=== PATIENT | female | born 2000 | race Caucasian/White ===

== ENCOUNTER → 2020-02-09 | Outpatient (REF) | payer OTHER | LOC: M LAB REF 16:09 | PROVIDERS: ATTEND Physician Assistant Medical | DX: Z11.59 Encounter for screening for other viral diseases (principal) ==

== ENCOUNTER 2022-09-22 10:08 | Day surgery (SDC) | payer OTHER ==
[~2022-09-22] VITALS: Ht 167.6 cm; Wt 90.4 kg
[~2022-09-22 10:08] MED LIST: AMPICILLIN SOD/SULBACTAM SOD 3 GM in D5W MINI-BAG PLUS 100 ML IV ONE; HYDR-3363 PO; LEXA1TAB2 PO; LIDOCAINE 2% 100MG/5ML SDV (FOR ANES.) As Ordered ONE; LIDOCAINE 2% W/ EPINEPHRINE 1.7 ML DENTAL INJ As Ordered ONE; ONDA4TAB6 PO; ONDANSETRON 4MG 2ML VIAL As Ordered ONE; ROCURONIUM BROMIDE 50MG/5ML VIAL As Ordered ONE; SUGAMMADEX SODIUM 500 MG/5 ML VIAL (BRIDION) As Ordered ONE; propofoL 200 MG/20 ML VIAL As Ordered ONE
[2022-09-22] MEDS ORDERED: OXYMETAZOLINE 0.05% NASAL SPRAY (AFRIN) As Ordered ONE (10:35)
[2022-09-22] MEDS ORDERED: LR 1,000 ML IV SCH ×2 (11:00→12:50)
[2022-09-22] MEDS ORDERED: fentaNYL 100 MCG/2 ML INJECTION As Ordered ONE (11:34)
[2022-09-22] MEDS ORDERED: MIDAZOLAM INJ 2MG/2ML VIAL As Ordered ONE (11:34)
[2022-09-22] MEDS ORDERED: CHLORHEXIDINE GLUCONATE 0.12 % 15ML UDC (PERIDEX ORAL RINSE) As Ordered ONE (12:16)
[2022-09-22] MEDS ORDERED: ACETAMINOPHEN 1000MG 100ML IV BAG As Ordered ONE ×2 (12:23→13:35)
[2022-09-22] MEDS ORDERED: GLYCOPYRROLATE INJ 0.2 MG/ML 2 ML VIAL As Ordered ONE (12:30)
[2022-09-22] MEDS ORDERED: fentaNYL 100 MCG/2 ML INJECTION IV PRN (12:50)
[2022-09-22] MEDS ORDERED: ONDANSETRON 4MG 2ML VIAL IV PRN (12:50)
[2022-09-22] MEDS ORDERED: oxyCODONE 5MG TAB PO PRN (12:50)
[2022-09-22] MEDS ORDERED: HYDROMORPHONE HCL 0.5 MG/ 0.5 ML SYRINGE IV PRN (12:50)
[2022-09-22 15:25] VITALS: BP 122/61; TEMP 99.7; O2SAT 97
== END 2022-09-22 15:38 | disposition home or self-care (01) ==
LOC: M SDC 10:08
PROVIDERS: ATTEND Dentist
DX: K01.1 Impacted teeth (principal); K02.9 Dental caries, unspecified; K21.9 Gastro-esophageal reflux disease without esophagitis; F41.9 Anxiety disorder, unspecified; F32.A Depression, unspecified; R51.9 Headache, unspecified; J30.2 Other seasonal allergic rhinitis; Z79.899 Other long term (current) drug therapy
CPT/HCPCS: 81025; 88300; C9290; D7210; D9223; J0131; J0295; J1100; J2250; J2405; J3010